=== PATIENT | female | born 1965 | race Caucasian/White ===

== ENCOUNTER 2020-05-05 17:35 | Emergency (ER) | payer OTHER, MEDICAID ==
[~2020-05-05] VITALS: Ht 157.5 cm; Wt 68.0 kg
--- NOTE | 2020-05-05 17:36 | NUR ---
DEE FLEMING ALS TO [facility].
[2020-05-05 17:40] VITALS: BP 176/73
--- NOTE | 2020-05-05 18:00 | NUR ---
PT AMBULATE TO ER BED 07
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
[2020-05-05] MEDS: ENALAPRIL 10 MG TAB PO ONE (18:14)
[2020-05-05 19:16] VITALS: BP 99/75
== END 2020-05-05 19:16 | disposition home or self-care (01) ==
LOC: MED 17:35
DX: I10 Essential (primary) hypertension (principal); Z98.890 Other specified postprocedural states; V89.2XXA Person injured in unspecified motor-vehicle accident, traffic, initial encounter; Y93.89 Activity, other specified; Y92.89 Other specified places as the place of occurrence of the external cause; Y99.8 Other external cause status
CPT/HCPCS: 99283